=== PATIENT | female | born 1960 | race Asian ===

== ENCOUNTER → 2018-01-26 07:31 | Outpatient (CLI) | payer OTHER, BC, SELFPAY ==
[2018-01-26 08:07] LABS: Alanine Aminotransferase 53 IU/L (9-52); Albumin 4.6 g/dL (3.5-5.0); Albumin Globulin Ratio 1.2 (1.0-2.8); Alkaline Phosphatase 65 U/L (38-126); Aspartate Aminotransferase 41 IU/L (14-36); BUN Creatinine Ratio 21.7 (6-22); Bilirubin Total 0.6 mg/dL (0.2-1.3); Blood Urea Nitrogen 13 mg/dL (7-17); Calcium 9.8 mg/dL (8.4-10.2); Carbon Dioxide 29 mmol/L (22-32); Chloride 101 mmol/L (98-107); Cholesterol 209 mg/dL (140-199); Estimated Glomerular Filt Rate > 60.0 mL/min (>60); Globulin 3.8 g/dL (1.7-4.1); Glucose 104 mg/dL (70-100); HDL Cholesterol 72 mg/dL (40-60); HEMOLYSIS < 15 (0-50); LDL Cholesterol Calculated 103 mg/dL (<100); Potassium 3.8 mmol/L (3.4-5.1); Sodium 144 mmol/L (137-145); Total Protein 8.4 g/dL (6.3-8.2); Triglycerides 170 mg/dL (35-150)
[2018-01-26 08:17] LABS: Add Manual Diff / Slide Review NO; Basophils Percent Auto 1.1 % (0-2); Eosinophils Percent Auto 10.6 % (2-4); Hematocrit 38.5 % (36-46); Hemoglobin 12.7 g/dL (12.0-16.0); Lymphocytes Percent Auto 42.4 % (25-40); Mean Corpuscular HGB Conc 32.9 % (30-36); Mean Corpuscular Hemoglobin 26.1 PG (26-34); Mean Corpuscular Volume 79.3 fL (80-100); Monocytes Percent Auto 6.2 % (3-14); Neutrophils Absolute Auto 1800 /uL (3000-5900); Neutrophils Percent Auto 39.7 % (50-75); Platelet Count 236 X10^3/uL (150-400); Red Blood Cell Count 4.85 X10^6/uL (4.0-5.2); Red Cell Distribution Width 14.1 % (11.6-14.8); White Blood Cell Count 4.6 X10^3/uL (4.5-11.0)
[2018-01-26 09:57] LABS: Thyroid Stimulating Hormone 3.29 uIU/mL (0.47-4.68)
== END ==
PROVIDERS: Family Provider Internal Medicine; PCP Internal Medicine; Visit Provider Internal Medicine
DX: E78.5 Hyperlipidemia, unspecified (principal); I10 Essential (primary) hypertension
CPT/HCPCS: 36415; 80053; 80061; 84443; 85025

== ENCOUNTER 2018-08-29 11:38 | Emergency (ER) | payer OTHER, BC, SELFPAY ==
[2018-08-29 11:45] VITALS: PULSE 52; RESP 16; O2SAT 99; BMI 26.4
--- NOTE | 2018-08-29 11:47 | DI.RAD.S_ITS ---
PROCEDURE: XR ANKLE LT MIN 3V INDICATIONS: injury pain TECHNIQUE: 3 views of the ankle were acquired. COMPARISON: None. FINDINGS: Bones: No fractures or dislocations. Ankle mortise is normally aligned. No suspicious bony lesions. Soft tissues: No tibiotalar joint effusion. There is apparent thickening and irregularity seen of the Achilles tendon. IMPRESSION: Apparent thickening and irregularity of the Achilles tendon, which is suggestive of a tear. Please correlate with focal tenderness. If clinically appropriate, please consider a dedicated ankle MRI for evaluation (assuming that there is no contraindication). Dictated by: Biju Kumar M.D. on 08/29/2018 at 11:21 Approved by: Biju Kumar M.D. on 08/29/2018 at 11:22
[2018-08-29 11:50] VITALS: BP 141/90; PULSE 57; RESP 16; TEMP 36.1
--- NOTE | 2018-08-29 11:54 | ED.LOWEXIN ---
HPI - Extremity Injury (Lower) <Kimmie Gallagher PA-C - Last Filed: 08/29/18 20:33> General Chief Complaint: Extremity Injury, Lower Stated Complaint: Left ankle injury Time Seen by Provider: 08/29/18 11:40 Source: patient Mode of arrival: wheelchair Limitations: no limitations History of Present Illness HPI Narrative: This 58-year-old female was playing tennis, chasing a ball when she felt a ball hit her left posterior ankle area, then fell and was unable to bear weight on that leg secondary to sensation of weakness/giving out. She states that it isn't really painful, however feels swollen just above the ankle in the back. She denies any other injury, denies any pain in the knee or foot or any other complaints. She took ibuprofen prior to arrival Related Data Home Medications Medication Instructions Recorded Confirmed Vitamin D3 1 cap PO DAILY 08/30/18 08/30/18 fexofenadine 180 mg tablet 180 mg PO DAILY 08/30/18 08/30/18 multivitamin tablet 1 tab PO DAILY 08/30/18 08/30/18 Previous Rx's Medication Instructions Recorded chlorthalidone 25 mg tablet 25 mg PO QDAY #90 tab 01/27/18 metoprolol tartrate 50 mg tablet 50 mg PO BID #180 tab 01/27/18 montelukast 10 mg tablet 10 mg PO QDAY #90 tab 01/27/18 pravastatin 10 mg tablet 10 mg PO HS #90 tab 01/27/18 Allergies Allergy/AdvReac Type Severity Reaction Status Date / Time apple [APPLE] Allergy Severe tachy, Verified 08/30/18 11:30 throat swelling kiwi [KIWI] Allergy Mild itchy ears Verified 08/30/18 11:30 SERNA Allergy Severe swollen Uncoded 08/30/18 11:30 throat Review of Systems <Kimmie Gallagher PA-C - Last Filed: 08/29/18 20:33> Review of Systems ROS Unobtainable: All systems reviewed & are unremarkable except as noted in HPI and below PFSH <Kimmie Gallagher PA-C - Last Filed: 08/29/18 20:33> Medical History Alpha thalassemia minor (Chronic) Chronic cough (Chronic) Dyshidrotic eczema (Chronic) Fibroids (Chronic) Hematuria (Chronic) Hypertension (Chronic) Seasonal allergies (Chronic) Surgical History Anesthesia (Resolved) Bladder polyp (Resolved ~2006) Status post hysterectomy (~02/2011) Family History (Updated 08/16/14 @ 00:00 by Conversion Provider) Brother Age: 58 Hypertension Father Age: 85 Diabetes mellitus Cataract Mother Age: 84 Carcinoma, renal cell Menieres disease Fibroid polyp of colon Brain tumor (benign) Hypertension Sister Age: 53 Fibroids Hypertension Social History Smoking Status: Never smoker alcohol intake: current substance use type: does not use Family History (Updated 08/16/14 @ 00:00 by Conversion Provider) Brother Age: 58 Hypertension Father Age: 85 Diabetes mellitus Cataract Mother Age: 84 Carcinoma, renal cell Menieres disease Fibroid polyp of colon Brain tumor (benign) Hypertension Sister Age: 53 Fibroids Hypertension Social History Smoking Status: Never smoker second hand exposure: Yes (when I was little.) alcohol intake: current (it depends on the day. I usually drink wine at home after work to relax.) substance use type: does not use Exam <Kimmie Gallagher PA-C - Last Filed: 08/29/18 20:33> Narrative Exam Narrative: GENERAL APPEARANCE: Patient sitting comfortably, in no distress. LUNGS: Clear to auscultation bilaterally. HEART: Rate and rhythm regular without murmur, normal S1 and S2, no S3 or S4. MUSCULOSKELETAL: Left foot and ankle there is no effusion. No tenderness over the left foot, ankle bony prominences, or knee. Achilles is partially intact by palpation, however there is a clear palpable divot and some increased density proximal to the Achilles. No point tenderness. She is able to dorsiflex and plantar flex left foot against resistance with mild tenderness. Full range of motion of the left knee without tenderness NEUROVASCULAR: Left foot is warm and pink with intact pedal pulses, sensation grossly intact Initial Vital Signs Initial Vital Signs: Vital Signs Pulse Rate 52 L 08/29/18 11:45 Respiratory Rate 16 08/29/18 11:45 Pulse Oximetry 99 08/29/18 11:45 <Ze Acosta DO - Last Filed: 08/31/18 08:13> Initial Vital Signs Initial Vital Signs: Vital Signs Pulse Rate 52 L 08/29/18 11:45 Respiratory Rate 16 08/29/18 11:45 Pulse Oximetry 99 08/29/18 11:45 Course <Kimmie Gallagher PA-C - Last Filed: 08/29/18 20:33> Orders Ordered: ED Orders 08/29/18 11:47 XR ankle LT min 3V Stat Vital Signs - 8 hr 08/29/18 13:40 Temperature 97.9 F Pulse Rate 57 L Respiratory Rate 18 Pulse Oximetry 97 <Ze Acosta DO - Last Filed: 08/31/18 08:13> Orders Ordered: ED Orders 08/29/18 11:47 XR ankle LT min 3V Stat Vital Signs - 8 hr 08/29/18 13:40 Temperature 97.9 F Pulse Rate 57 L Respiratory Rate 18 Pulse Oximetry 97 MDM - Extremity Injury (Lower) <Kimmie Gallagher PA-C - Last Filed: 08/29/18 20:33> Imaging Data ankle: Radiologist's impression: [place] [address] XRay Report Signed Patient: Ba Stover#: [id number] : 1960Acct:[id number] Age/Sex: 58 / FDate of Service: 08/29/18 Loc: ED Accession Number: [id number] Procedure: XR ankle LT min 3V Ordering Provider: Kimmie Gallagher P.A-C PROCEDURE: XR ANKLE LT MIN 3V INDICATIONS: injury pain TECHNIQUE: 3 views of the ankle were acquired. COMPARISON: None. FINDINGS: Bones: No fractures or dislocations. Ankle mortise is normally aligned. No suspicious bony lesions. Soft tissues: No tibiotalar joint effusion. There is apparent thickening and irregularity seen of the Achilles tendon. IMPRESSION: Apparent thickening and irregularity of the Achilles tendon, which is suggestive of a tear. Please correlate with focal tenderness. If clinically appropriate, please consider a dedicated ankle MRI for evaluation (assuming that there is no contraindication). Dictated by: Biju Kumar M.D. on 08/29/2018 at 11:21 Approved by: Biju Kumar M.D. on 08/29/2018 at 11:22 Discharge Plan Departure Patient Disposition: Home Clinical Impression: Achilles tendon tear Qualifiers: Encounter type: initial encounter Laterality: left Qualified Code(s): S86.012A - Strain of left Achilles tendon, initial encounter Discharge Date/Time: 08/29/18 13:40 Interventions: ED Discharge Assessment Last Done: 08/29/18 13:40 Instructions: How to Use Crutches, DI for Achilles Tendon Rupture Activity Restrictions/Additional Instructions: Based on your exam and x-rays today, I do think you have torn your Achilles tendon in the back of your ankle. You do seem to have some strength there and this may be a partial tear, however you need follow-up exam and may need further testing with MRI as well as orthopedics referral. Please call your PCP 1st thing in the morning and set up follow-up in the next day or 2 to reassess and help with referrals if they are needed. If for some reason your unable to get in with your primary care clinic, please go ahead and call [facility] tomorrow and let them know you were seen in the emergency room with Achilles tear and we have referred you for follow-up (I have given you Dr. Badillo's name because he is radiation oncology manager today but you can see 1 of the other orthopedic specialists there as well). Please continue ibuprofen to help with inflammation. Please wear the boot that we gave you at all times when you are bearing weight, and use the crutches as well to help with balance and stability, or if you are covering more distance. Please return if you have any acutely worsening pain or other new symptoms such as color change or sensation loss in your foot as we discussed. Prescriptions: No Action chlorthalidone 25 mg tablet 25 mg PO QDAY Qty: 90 RF: 3 metoprolol tartrate 50 mg tablet 50 mg PO BID Qty: 180 RF: 3 montelukast [Singulair] 10 mg tablet 10 mg PO QDAY Qty: 90 RF: 3 pravastatin 10 mg tablet 10 mg PO HS Qty: 90 RF: 3 multivitamin tablet 1 tab PO DAILY RF: 0 fexofenadine [Rosamaria Allergy] 180 mg tablet 180 mg PO DAILY RF: 0 Vitamin D3 1 cap PO DAILY RF: 0 Referrals: Cielo Zuniga DO [Primary Care Provider] - Ye Badillo MD [Physician] - <Ze Acosta DO - Last Filed: 08/31/18 08:13> Cosign ED Attending Clarkeature Attestation: I was immediately available in the department for consultation. Documentation has been reviewed. I agree with assessment and plan.
[2018-08-29 13:40] VITALS: PULSE 57; RESP 18; TEMP 36.6; O2SAT 97
== END 2018-08-29 13:40 | disposition home or self-care (01) ==
PROVIDERS: Emergency Provider Internal Medicine; PCP Family Medicine
DX: S86.012A Strain of left Achilles tendon, initial encounter (principal); W19.XXXA Unspecified fall, initial encounter; Y93.73 Activity, racquet and hand sports
CPT/HCPCS: 73610; 99283

== ENCOUNTER → 2018-12-03 16:52 | Outpatient (CLI) | payer OTHER, BC, SELFPAY | PROVIDERS: PCP Family Medicine; Visit Provider Orthopaedic Surgery Foot and Ankle Surgery | DX: Z01.818 Encounter for other preprocedural examination (principal) | CPT/HCPCS: 93005 ==

== ENCOUNTER 2018-12-29 09:08 | Day surgery (SDC) | payer OTHER, BC, SELFPAY ==
[2018-12-28 08:34] VITALS: BMI 26.4
[2018-12-29] VITALS (8 sets, daily range): BP systolic 103–129; BP diastolic 45–79; PULSE 54–64; RESP 10–17; TEMP 36.4–36.8; O2SAT 96–100; BMI 26.4
--- NOTE | 2018-12-29 10:51 | PM.PREOP ---
Pre-operative Note Interval Note History & Physical reviewed/Exam performed by Physician: Yes Changes to H&P: No
--- NOTE | 2018-12-29 11:08 | SUR.PREOP ---
Block start time[1050]. Monitoring initiated and maintained throughout procedure. Oxygen and medications given per anesthesiologist instructions. Patient remained stable throughout procedure, no adverse reactions noted. Block end time [1102].
[2018-12-29] MEDS: CEFAZOLIN 2 GM/100 ML FROZ.PIGGY IV (11:24)
--- NOTE | 2018-12-29 12:02 | SUR.OPER ---
Prone on padded OR bed, head in foam head support, gel chest rolls, gel pad under knees, pillow under lower legs, toes free of pressure, arms secured on padded arm boards at <90 degrees abduction. Safety belt at thigh.
--- NOTE | 2018-12-29 12:15 | P.PCN_ITS ---
Procedures Date/Time Date of procedure: 12/29/18 Time of procedure: 10:50 General Procedure description: Ultrasound guided popliteal sciatic nerve block for post op pain control after left achilles tendon repair by Dr. Wright. Risk and murtaza efits of procedure discussed with patient. ASA monitoring applied to patient. Oxygen given via nasal cannula. 1 mg Versed and 50 mcg fentanyl given for procedural sedation. Skin site was prepped with chlorhexidine and allowed to fully dry. Sterile gloves, mask, hat and probe cover were used to maintain sterility. 2% lidocaine and 30ga needle was used to make a small skin wheal at needle insertion site. Under ultrasound guidance, a 21ga 100mm Pajunk needle was directed near the division of the sciatic nerve into tibial and peroneal nerve in the popliteal fossa (lateral approach). Patient reported no parasthesias. After negative aspiration, 20 mL 0.5% ropivicaine and 10mg dexamethasone were in jected around sciatic nerve. Patient tolerated procedure well.
[2018-12-29] MEDS: BUPIVACAINE 0.25% W/ EPI 30 ML VIAL INJ (12:23)
[2018-12-29] MEDS: LACTATED RINGERS 1,000 ML 42 ML IV (12:43)
--- NOTE | 2018-12-29 13:47 | P.OP_ITS ---
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 Repair Achilles tendon, secondary, left CPT code 01082 2. Transfer tendon flexor hallucis longus, left CPT code 34126 Same procedure as scheduled: Yes Indications: The patient is a 58-year-old female that sustained a left Achilles tendon rupture approximately 4 months ago. The patient had an initial non operative treatment but unfortunately came out of her boot and walk flatfoot early during the course. Pelvis conservative treatment was attempted but the patient has persistent weakness and an established gap. Patient has been lauren cated for surgical reconstruction to return to their desired activity level. Patient has been counseled extensively regarding the complex nature of the problem indications to transfer the flexor hallucis longus tendon to augment repair and possible need for lengthening the tendon or calf muscle. We discussed the rationale the risks of and prolonged recovery associated with surgery. Patient expressed understanding of all issues including the risk of infection, nerve damage, wound dehiscence, re-rupture, incomplete relief of pain, inability return to the patient's desired level of function, generalized dissatisfaction with the surgical procedure outcome, deep vein thrombosis, pulmonary embolism, cardiac it and pulmonary complications up to and including stroke paralysis and . The patient understands the healing of soft tissues will take 3 months for full recovery 6-12 months. The patient understands that it is critical to elevate the operative extremity above the heart for the 1st 3 weeks after surgery to control swelling and pain. The patient was counseled no weight-bearing will be allowed on the surgical leg until instructed to do so. Patient expressed full understanding of all these issues and would like to proceed with surgery. Informed consent was signed in the office. Surgeon: Angy Wright Click Yes if Unassisted: Yes Anesthesia Type: General and Local Operative Notes Findings: Chronic rupture midsubstance Achilles tendon 2 cm gap. Note there was a small strip of tendon in continuity but this was very thin and stretched out. No plantaris was encountered. Posterior fascia was divided in the FHL isolated taking care to protect the neurovascular bundle. FHL was cut sized and transferred to the calcaneus just anterior to the Achilles tendon and secured using an Arthrex bio tenodesis screw. The Achilles tendon was mobilized and repaired using 2. FiberWire. Closure Type: primary Specimen(s): none sent Applied: other (Splint in plantar flexion) Estimated Blood Loss (mL): 15 Blood products transfused: none Tourniquet time (min): 63 Procedure in detail: The patient was seen in the preoperative area and the informed consent was confirmed and the patient's site of surgery was marked. A regional block was placed by the anesthesia team for postoperative pain control. The patient was then brought back to the operating room and placed under general anesthesia in the supine position. A well-padded thigh tourniquet was placed on the operative leg. Patient was then moved into the prone position on the operative table. Chest rolls were utilized. The operative extremity was prepped and draped in the standard sterile fashion. A formal time-out procedure was performed confirming the patient, side and site of surgery administration of appropriate preoperative antibiotics and presence of informed consent. All were in agreement. Implants were in the room. The level of the rupture and gap was marked out on the posterior leg and the preliminary incision was marked out as well. After exsanguination with the Esmarch the tourniquet was elevated to 250 mm of mercury and stayed there for 63 minutes. Next a longitudinal incision was made over the Achilles tendon the paratenon was isolated carefully divided and elevated off the tendon. Is noted to be a chronic tear with gap in the midsubstance Achilles tendon. There is a small strip of Achilles in continuity but this was very thin and stretched out. The tendon was mobilized and the scar tissue was excised. Once this was completed there was an approximately 2 cm gap between the tendon ends. Due to the chronic nature of the rupture and patient's age it was decided that an FHL transfer would be necessary. FHL transfer: Posterior fascia of the leg was incised deep and and the FHL muscle belly and tendon were isolated. FHL was traced deep medially and retracted proximally to expose the tendon as it went into the tarsal tunnel. The tendon was isolated and tested with mobilization of the great toe. Tendon was then cut deep into the tunnel and brought out of the wound. This was sized to be a 7. Fiber loop was then placed in the tendon in. The Beath pin was placed just anterior to the Achilles tendon in the calcaneus and was drilled through the calcaneus in line with the Achilles insertion. Pin position was confirmed on fluoroscopy. This was then overdrilled with a 4 mm Reamer with the 7 mm Reamer approximately 30 mm deep to accommodate the bio tenodesis screw. A 7 x 23 mm bio tenodesis screw was selected. The FHL tendon sutures were passed through the calcaneus with the Beath pin out the plantar heel. Next the ankle was held in approximately 25? of plantar flexion. FHL was then guided into the tunnel and pulled taut at the appropriate plantar flexion. This was then secured with the 7 x 23 mm Arthrex bio tenodesis screw. This achieved excellent fixation and held the ankle in the appropriate tension as desired. Achilles tendon repair: Attention was then returned to the Achilles tendon repair. The tendon was mobilized using a malleable retractor between the tendon and paratenon and deep to the tendon as well. This allowed the tendon to be brought distally to approximate the tendon ends. The tendons were repaired in the standard fashion using a 2. FiberWire Krackow our sutures were 2 strand repair. This was oversewn with 0 Vicryl sutures. Once this was completed the tourniquet was let down and hemostasis was achieved. Irrigation was performed. There is good tension on the Achilles and a Villalobos's test demonstrated restored plantar flexion. At this time the paratenon was repaired with 4 0 Maxon suture. Subcutaneous tissue was closed with 4 0 Monocryl skin with 3 O nylon suture bulky dressing and splint were applied in plantar flexion. The patient was woken from anesthesia and taken to recovery room. There were no immediate complications from this procedure. All counts were correct. Complications: none Post-operative Condition: stable Disposition: PACU Plan for aftercare: Patient will be strict elevation and strict nonweightbearin g. she will be on aspirin 325 mg twice a day for DVT prophylaxis starting postoperative day 1. Patient is encouraged to wiggle the toes and mobilizer other extremity to help with blood flow. Patient will follow up in 2 weeks time for suture removal. At that time the patient will be placed into a boot with heel lifts or cast based on wound healing. Once in the boot the patient will be instructed to do gentle active motion exercises and progressive partial weight- bearing under the Achilles repair protocol
[2018-12-29] MEDS: fentaNYL 100 MCG/2 ML INJ 50 MCG IV (14:01)
--- NOTE | 2018-12-29 14:07 | SUR.PHASEI ---
Pt c/o /10 pain medicated with fentanyl.
--- NOTE | 2018-12-29 14:51 | SUR.PHASEII ---
brought in, d/c instructions discussed. All voiced an understanding. L leg remains elevated with ice intermittently behind knee, pt denies pain, nausea. Awake and drinking coffee.
== END 2018-12-29 15:15 | disposition home or self-care (01) ==
LOC: OR 09:10
PROVIDERS: Family Provider Family Medicine; PCP Family Medicine; Visit Provider Orthopaedic Surgery Foot and Ankle Surgery
PROC: (CPT 27650; principal; 2018-12-29 10:45)
PROC: (CPT 27691; 2018-12-29 10:45)
DX: S86.012A Strain of left Achilles tendon, initial encounter (principal); G89.18 Other acute postprocedural pain; Y93.73 Activity, racquet and hand sports
CPT/HCPCS: 27654; 27691; 64445; 64450; J0690; J1100; J1885; J2250; J2405; J2704; J3010

== ENCOUNTER → 2019-03-03 16:41 | Outpatient (CLI) | payer OTHER, BC, SELFPAY ==
[2019-03-03 18:16] LABS: Alanine Aminotransferase 32 IU/L (<35); Albumin 4.5 g/dL (3.5-5.0); Albumin Globulin Ratio 1.3 (1.0-2.8); Alkaline Phosphatase 75 U/L (38-126); Aspartate Aminotransferase 34 IU/L (14-36); Bilirubin Total 0.3 mg/dL (0.2-1.3); Blood Urea Nitrogen 14 mg/dL (7-17); Carbon Dioxide 29 mmol/L (22-32); Chloride 101 mmol/L (98-107); Estimated Glomerular Filt Rate > 60.0 mL/min (>60); Globulin 3.5 g/dL (1.7-4.1); Glucose 97 mg/dL (70-100); HEMOLYSIS < 15 (0-50); Potassium 4.1 mmol/L (3.4-5.1); Sodium 139 mmol/L (137-145)
== END ==
PROVIDERS: Family Provider Family Medicine; PCP Family Medicine; Visit Provider Family Medicine
DX: R94.5 Abnormal results of liver function studies (principal)
CPT/HCPCS: 36415; 80053

== ENCOUNTER → 2019-03-12 13:24 | Outpatient (CLI) | payer OTHER, BC, SELFPAY ==
--- NOTE | 2019-03-12 13:25 | DI.MG.S_ITS ---
BILATERAL DIGITAL SCREENING MAMMOGRAM 3D/2D WITH CAD: 03/12/2019 CLINICAL: Routine screening. Comparison is made to exams dated: 11/06/2016 mammogram, 10/26/2015 mammogram, and 10/06/2014 mammogram - [facility]. The tissue of both breasts is heterogeneously dense. This may lower the sensitivity of mammography. Current study was also evaluated with a Computer Aided Detection (CAD) system. No significant masses, calcifications, or other findings are seen in either breast. There has been no significant interval change. IMPRESSION: NEGATIVE There is no mammographic evidence of malignancy. A 1 year screening mammogram is recommended. This exam was interpreted at Station ID: [id number]. NOTE: For mammograms, a report in lay terms will be sent to the patient. Approximately 15% of breast malignancies will not be visualized mammographically. In the management of a palpable breast mass, a negative mammogram must not discourage biopsy of a clinically suspicious lesion. Electronically Signed By: Bipin murillo/pierre:03/14/2019 09:40:26 letter sent: Normal Exam ACR BI-RADS Category 1: Negative [id number]
== END ==
PROVIDERS: PCP Family Medicine; Visit Provider Family Medicine
DX: Z12.31 Encounter for screening mammogram for malignant neoplasm of breast (principal)
CPT/HCPCS: 77063; 77067

== ENCOUNTER 2019-04-01 12:49 | Day surgery (SDC) | payer OTHER, BC, SELFPAY ==
[2019-04-01 13:25] VITALS: BMI 26.3
[2019-04-01 13:31] VITALS: BP 165/90; PULSE 70; RESP 15; TEMP 36.2; O2SAT 94
[2019-04-01] MEDS: SODIUM CHLORIDE 0.9% 1,000 ML 200 ML IV (13:37)
--- NOTE | 2019-04-01 14:11 | PM.HP.1 ---
History of Present Illness History of Present Illness Date Patient Seen: 04/01/19 Time Patient Seen: 14:11 Chief complaint: [id number] SCREENING COLONOSCOPY Narrative: 58-year-old white female patient here for a screening colonoscopy. Had a polyp removed about 6 years ago. Patient is asymptomatic. Patient History Medical History Achilles rupture, left (Acute 08/29/18) Alpha thalassemia minor (Chronic) Dyshidrotic eczema (Chronic) Eczema (Acute) Fibroids (Chronic) Hematuria (Chronic) Hemorrhoids (Acute) Hypertension (Chronic) Seasonal allergies (Chronic) Transaminitis (Acute) Surgical History Anesthesia (Resolved) Bladder polyp (Resolved ~2006) Status post hysterectomy (~02/2011) Family & Social History Family History Brother Age: 58 Hypertension Father Age: 85 Diabetes mellitus Cataract Prostate cancer Colon cancer Mother Age: 84 Carcinoma, renal cell Menieres disease Fibroid polyp of colon Brain tumor (benign) Hypertension Sister Age: 53 Fibroids Hypertension Social History: household members spouse Tobacco & Substance use: Smoking Status Never smoker alcohol intake current alcohol intake frequency 0-2 drinks per day Substance Use Type does not use Meds Home Medications and Allergies Home Medications Medication Instructions Recorded Confirmed Type multivitamin 1 tab PO DAILY 08/30/18 04/01/19 History cholecalciferol (vitamin D3) 50 unit PO DAILY 12/29/18 04/01/19 History [Vitamin D3] loratadine [Allerclear] 10 mg PO DAILY 12/29/18 04/01/19 History chlorthalidone 25 mg tablet 25 mg PO QDAY #90 tab 04/01/19 04/01/19 Rx metoprolol tartrate 50 mg tablet 50 mg PO BID #180 tab 04/01/19 04/01/19 Rx montelukast 10 mg tablet 10 mg PO QDAY #90 tab 04/01/19 04/01/19 Rx pravastatin 10 mg tablet 10 mg PO HS #90 tab 04/01/19 04/01/19 Rx Allergies Allergy/AdvReac Type Severity Reaction Status Date / Time apple [APPLE] Allergy Severe tachy, Verified 04/01/19 13:22 throat swelling kiwi [KIWI] Allergy Mild itchy ears Verified 04/01/19 13:22 SERNA Allergy Severe swollen Uncoded 12/20/18 08:34 throat Review of Systems Review of Systems ROS Unobtainable: All systems reviewed & are unremarkable except as noted in HPI and below Exam Vital Signs (past 8 hours): - 04/01/19 13:31 Temperature 97.2 F L Pulse Rate 70 Respiratory Rate 15 Blood Pressure 165/90 H Pulse Oximetry 94 Oxygen Delivery Method Room Air Narrative Exam Narrative: 58-year-old female asymptomatic resting comfortably in bed Lungs are clear Heart regular rhythm no murmur Abdomen soft nontender no masses Rectal to be done at colonoscopy Assessment & Plan Assessment & Plan narrative: 58-year-old female here for a screening colonoscopy is asymptomatic. She had a polypectomy about 6 years ago. She has no unanswered questions.
--- NOTE | 2019-04-01 14:28 | PM.OP.ENDO ---
Operative Date/Time/Diagnoses Date of procedure: 04/01/19 Time of procedure: 14:28 Pre-op diagnosis: Screening colonoscopy Post-op diagnosis: same Procedure & Clinicians Study performed: Total colonoscopy to the cecum Same procedure as scheduled: Yes Surgeon: Alvaro Thakur Procedure Notes SCOAP/Timeout: This was done Procedure in detail: The patient was properly identified during surgical pause. The flexible fiberoptic colonoscope was inserted transanally to the cecum. The patient has no tumors no polyps no diverticulosis. She had a normal exam. She was comfortably maintained with 4 mg of Versed and 150 micro g of fentanyl throughout the procedure Scope withdrawal time: 5 Sedation minutes: 14 Specimen(s): none sent Complications: none Post-procedure Recommendations: Colonscopy in 10 years Disposition: PACU
[2019-04-01] MEDS: MIDAZOLAM 5 MG/5 ML VIAL IV (14:29)
[2019-04-01] MEDS: fentaNYL 250 MCG/5 ML INJ IV (14:29)
[2019-04-01 14:32] VITALS: BP 129/79; PULSE 75; RESP 12; TEMP 37.1; O2SAT 97
[2019-04-01 14:37] VITALS: BP 126/82; PULSE 75; RESP 12; O2SAT 97
[2019-04-01 14:42] VITALS: BP 129/81; PULSE 78; RESP 18; O2SAT 97
[2019-04-01 14:46] VITALS: BP 117/85; PULSE 77; RESP 16; TEMP 36.2; O2SAT 99
[2019-04-01 15:00] VITALS: BP 137/97; PULSE 70; RESP 15; TEMP 36.1; O2SAT 98
== END 2019-04-01 15:05 | disposition home or self-care (01) ==
PROVIDERS: PCP Family Medicine; Visit Provider Surgery
PROC: 0DJD8ZZ Inspection of Lower Intestinal Tract, Via Natural or Artificial Opening Endoscopic (ICD-10-PCS; CPT 45378; principal; 2019-04-01 14:30)
DX: Z12.11 Encounter for screening for malignant neoplasm of colon (principal); Z86.010 Personal history of colon polyps
CPT/HCPCS: 45378; 99152; J2250; J3010

== ENCOUNTER → 2020-04-28 08:07 | Outpatient (CLI) | payer OTHER, BC, SELFPAY ==
--- NOTE | 2020-04-28 08:10 | DI.MG.S_ITS ---
BILATERAL DIGITAL SCREENING MAMMOGRAM 3D/2D WITH CAD: 04/28/2020 CLINICAL: Routine screening. Comparison is made to exams dated: 03/12/2019 mammogram, 11/06/2016 mammogram, 10/26/2015 mammogram, and 10/06/2014 mammogram - [facility]. The tissue of both breasts is heterogeneously dense. This may lower the sensitivity of mammography. Current study was also evaluated with a Computer Aided Detection (CAD) system. No significant masses, calcifications, or other findings are seen in either breast. There has been no significant interval change. IMPRESSION: NEGATIVE There is no mammographic evidence of malignancy. A 1 year screening mammogram is recommended. This exam was interpreted at Station ID: [id number]. NOTE: For mammograms, a report in lay terms will be sent to the patient. Approximately 15% of breast malignancies will not be visualized mammographically. In the management of a palpable breast mass, a negative mammogram must not discourage biopsy of a clinically suspicious lesion. Electronically Signed By: Bipin murillo/pierre:04/30/2020 07:26:16 letter sent: Normal Exam ACR BI-RADS Category 1: Negative 3341F
== END ==
PROVIDERS: PCP Family Medicine; Referring Provider Family Medicine; Visit Provider Family Medicine
DX: Z12.31 Encounter for screening mammogram for malignant neoplasm of breast (principal)
CPT/HCPCS: 77063; 77067

== ENCOUNTER → 2020-06-13 07:30 | Outpatient (CLI) | payer OTHER, BC, SELFPAY ==
[2020-06-13 08:09] LABS: Add Manual Diff / Slide Review NO; Basophils Absolute Auto 100 /uL (0-100); Basophils Percent Auto 0.9 % (0-2); Eosinophils Absolute Auto 700 /uL (0-450); Eosinophils Percent Auto 11.4 % (2-4); Hemoglobin 12.7 g/dL (12.0-16.0); Lymphocytes Absolute Auto 3100 /uL (1100-4500); Lymphocytes Percent Auto 49.5 % (25-40); Mean Corpuscular HGB Conc 32.6 % (30-36); Mean Corpuscular Hemoglobin 25.8 PG (26-34); Mean Corpuscular Volume 79.2 fL (80-100); Monocytes Absolute Auto 400 /uL (0-900); Neutrophils Absolute Auto 2000 /uL (1500-7000); Neutrophils Percent Auto 32.2 % (50-75); Platelet Count 212 X10^3/uL (150-400); Red Blood Cell Count 4.93 X10^6/uL (4.0-5.2); Red Cell Distribution Width 14.1 % (11.6-14.8); White Blood Cell Count 6.1 X10^3/uL (4.5-11.0)
[2020-06-13 08:27] LABS: Alanine Aminotransferase 41 IU/L (<35); Albumin 4.7 g/dL (3.5-5.0); Albumin Globulin Ratio 1.2 (1.0-2.8); Alkaline Phosphatase 84 U/L (38-126); Aspartate Aminotransferase 35 IU/L (14-36); Bilirubin Total 0.7 mg/dL (0.2-1.3); Blood Urea Nitrogen 15 mg/dL (7-17); Carbon Dioxide 27 mmol/L (22-32); Chloride 98 mmol/L (98-107); Cholesterol 238 mg/dL (140-199); Estimated Glomerular Filt Rate > 60.0 mL/min (>60); Globulin 3.9 g/dL (1.7-4.1); Glucose 101 mg/dL (70-100); HDL Cholesterol 69 mg/dL (40-60); HEMOLYSIS < 15 (0-50); LDL Cholesterol Calculated 137 mg/dL (<100); Potassium 3.5 mmol/L (3.4-5.1); Sodium 136 mmol/L (137-145); Total Protein 8.6 g/dL (6.3-8.2); Triglycerides 160 mg/dL (35-150)
[2020-06-13 09:10] LABS: Thyroid Stimulating Hormone 3.56 uIU/mL (0.47-4.68)
== END ==
PROVIDERS: PCP Family Medicine; Referring Provider Family Medicine; Visit Provider Family Medicine
DX: E78.5 Hyperlipidemia, unspecified (principal); E88.81 Metabolic syndrome and other insulin resistance; I10 Essential (primary) hypertension; R74.01 Elevation of levels of liver transaminase levels
CPT/HCPCS: 36415; 80053; 80061; 84443; 85025

== ENCOUNTER → 2020-06-22 15:12 | Outpatient (CLI) | payer OTHER, BC, SELFPAY ==
[2020-06-22] MEDS: COVID-19 VACC #1, MRNA(MOD) 100 MCG/0.5 ML VIAL IM (15:22)
== END ==
PROVIDERS: PCP Family Medicine; Visit Provider Internal Medicine
DX: Z23 Encounter for immunization (principal)
CPT/HCPCS: 0011A; 91301

== ENCOUNTER → 2020-07-20 15:44 | Outpatient (CLI) | payer OTHER, BC, SELFPAY ==
[2020-07-20] MEDS: COVID-19 VACC #2, MRNA(MOD) 100 MCG/0.5 ML VIAL IM (15:56)
== END ==
PROVIDERS: PCP Family Medicine; Visit Provider Internal Medicine
DX: Z23 Encounter for immunization (principal)
CPT/HCPCS: 0012A; 91301

== ENCOUNTER → 2021-06-13 07:31 | Outpatient (CLI) | payer OTHER, BC, SELFPAY ==
[2021-06-13 08:07] LABS: Alanine Aminotransferase 33 IU/L (<35); Albumin 4.5 g/dL (3.5-5.0); Albumin Globulin Ratio 1.5 (1.0-2.8); Alkaline Phosphatase 59 U/L (38-126); Aspartate Aminotransferase 30 IU/L (14-36); BUN Creatinine Ratio 17.2 (6-22); Bilirubin Total 0.6 mg/dL (0.2-1.3); Blood Urea Nitrogen 10 mg/dL (7-17); Calcium 9.8 mg/dL (8.4-10.2); Carbon Dioxide 30 mmol/L (22-32); Chloride 99 mmol/L (98-107); Cholesterol 216 mg/dL (140-199); Estimated Glomerular Filt Rate > 60.0 mL/min (>60); Globulin 3.1 g/dL (1.7-4.1); Glucose 104 mg/dL (70-100); HDL Cholesterol 74 mg/dL (40-60); HEMOLYSIS < 15 (0-50); LDL Cholesterol Calculated 112 mg/dL (<100); Potassium 3.8 mmol/L (3.4-5.1); Sodium 136 mmol/L (137-145); Total Protein 7.6 g/dL (6.3-8.2); Triglycerides 151 mg/dL (35-150); Uric Acid 7.5 mg/dL (2.5-6.2)
== END ==
PROVIDERS: PCP Family Medicine; Referring Provider Family Medicine; Visit Provider Family Medicine
DX: E78.5 Hyperlipidemia, unspecified (principal); I10 Essential (primary) hypertension; M10.9 Gout, unspecified
CPT/HCPCS: 36415; 80053; 80061; 84550

== ENCOUNTER → 2022-07-09 07:22 | Outpatient (CLI) | payer BC, SELFPAY ==
[2022-07-09 08:11] LABS: Add Manual Diff / Slide Review NO; Basophils Absolute Auto 100 /uL (0-100); Basophils Percent Auto 1.1 % (0-2); Eosinophils Absolute Auto 700 /uL (0-450); Eosinophils Percent Auto 10.6 % (2-4); Hematocrit 37.4 % (36-46); Hemoglobin 12.1 g/dL (12.0-16.0); Lymphocytes Absolute Auto 2800 /uL (1100-4500); Lymphocytes Percent Auto 44.1 % (25-40); Mean Corpuscular HGB Conc 32.3 % (30-36); Mean Corpuscular Hemoglobin 25.6 PG (26-34); Mean Corpuscular Volume 79.2 fL (80-100); Monocytes Absolute Auto 400 /uL (0-900); Monocytes Percent Auto 6.1 % (3-14); Neutrophils Absolute Auto 2500 /uL (1500-7000); Neutrophils Percent Auto 38.1 % (50-75); Platelet Count 206 X10^3/uL (150-400); Red Blood Cell Count 4.72 X10^6/uL (4.0-5.2); Red Cell Distribution Width 14.3 % (11.6-14.8); White Blood Cell Count 6.4 X10^3/uL (4.5-11.0)
[2022-07-09 08:24] LABS: Alanine Aminotransferase 39 IU/L (<35); Albumin 4.3 g/dL (3.5-5.0); Albumin Globulin Ratio 1.2 (1.0-2.8); Alkaline Phosphatase 67 U/L (38-126); Aspartate Aminotransferase 37 IU/L (14-36); BUN Creatinine Ratio 23.5 (6-22); Bilirubin Total 0.6 mg/dL (0.2-1.3); Blood Urea Nitrogen 12 mg/dL (7-17); Calcium 9.4 mg/dL (8.4-10.2); Carbon Dioxide 29 mmol/L (22-32); Chloride 99 mmol/L (98-107); Cholesterol 211 mg/dL (140-199); Estimated Glomerular Filt Rate > 60 mL/min (>60); Globulin 3.5 g/dL (1.7-4.1); Glucose 99 mg/dL (80-110); HDL Cholesterol 76 mg/dL (40-60); HEMOLYSIS < 15 (0-50); LDL Cholesterol Calculated 110 mg/dL (<100); Potassium 3.7 mmol/L (3.4-5.1); Sodium 135 mmol/L (137-145); Total Protein 7.8 g/dL (6.3-8.2); Triglycerides 123 mg/dL (35-150); Uric Acid 8.5 mg/dL (2.5-6.2)
[2022-07-09 08:54] LABS: Thyroid Stimulating Hormone 3.32 uIU/mL (0.47-4.68)
== END ==
PROVIDERS: PCP Family Medicine; Referring Provider Family Medicine; Visit Provider Family Medicine
DX: E78.2 Mixed hyperlipidemia (principal); E88.81 Metabolic syndrome and other insulin resistance; I10 Essential (primary) hypertension; Z13.29 Encounter for screening for other suspected endocrine disorder; Z13.6 Encounter for screening for cardiovascular disorders
CPT/HCPCS: 36415; 80053; 80061; 84443; 84550; 85025

== ENCOUNTER → 2022-08-12 07:15 | Outpatient (CLI) | payer BC, SELFPAY ==
[2022-08-12 08:38] LABS: Alanine Aminotransferase 34 IU/L (<35); Albumin 4.2 g/dL (3.5-5.0); Albumin Globulin Ratio 1.2 (1.0-2.8); Alkaline Phosphatase 64 U/L (38-126); Aspartate Aminotransferase 29 IU/L (14-36); BUN Creatinine Ratio 17.4 (6-22); Bilirubin Total 0.8 mg/dL (0.2-1.3); Blood Urea Nitrogen 8 mg/dL (7-17); Calcium 9.5 mg/dL (8.4-10.2); Carbon Dioxide 28 mmol/L (22-32); Chloride 98 mmol/L (98-107); Estimated Glomerular Filt Rate > 60 mL/min (>60); Globulin 3.4 g/dL (1.7-4.1); Glucose 95 mg/dL (80-110); HEMOLYSIS < 15 (0-50); Potassium 3.7 mmol/L (3.4-5.1); Sodium 136 mmol/L (137-145); Total Protein 7.6 g/dL (6.3-8.2)
[2022-08-12 10:20] LABS: Uric Acid 8.2 mg/dL (2.5-6.2)
== END ==
PROVIDERS: PCP Family Medicine; Referring Provider Family Medicine; Visit Provider Family Medicine
DX: R74.01 Elevation of levels of liver transaminase levels (principal); M10.9 Gout, unspecified
CPT/HCPCS: 36415; 80053; 84550

== ENCOUNTER → 2022-11-15 07:38 | Outpatient (CLI) | payer BC, SELFPAY | PROVIDERS: PCP Family Medicine; Visit Provider Nurse Practitioner Family | DX: M79.89 Other specified soft tissue disorders (principal) | CPT/HCPCS: 87070; 87075; 87205 ==

== ENCOUNTER 2022-12-10 13:11 | Emergency (ER) | payer BC, SELFPAY ==
[2022-12-10 13:17] VITALS: BP 186/84; PULSE 56; RESP 16; TEMP 36.7; O2SAT 98; BMI 24.7
--- NOTE | 2022-12-10 13:25 | DI.RAD.S_ITS ---
PROCEDURE: XR ELBOW LT MIN 3V INDICATIONS: fall/pain x 1 week TECHNIQUE: 3 views of the elbow were acquired. COMPARISON: None. FINDINGS: Bones: No fractures or dislocations. No suspicious bony lesions. Soft tissues: No elbow joint effusion. No suspicious soft tissue calcifications. Soft tissue swelling over the olecranon. IMPRESSION: 1. No acute osseous abnormality. Dictated by: Marc Newman M.D. on 12/10/2022 at 13:56 Approved by: Marc Newman M.D. on 12/10/2022 at 13:57
[2022-12-10 13:58] VITALS: O2SAT 96
[2022-12-10 13:59] VITALS: BP 142/74; PULSE 56; O2SAT 97
[2022-12-10 14:00] VITALS: PULSE 56; O2SAT 96
--- NOTE | 2022-12-10 14:09 | ED.GENADULT ---
HPI - General Adult General Chief complaint: Syncope Stated complaint: fell last week hit elbow still pain and in head Time Seen by Provider: 12/10/22 14:02 Source: patient Mode of arrival: Ambulatory History of Present Illness HPI narrative: Patient is a 62-year-old female who is here for evaluation of left elbow discomfort. She states that 1 week ago she was standing in the bathroom brushing her teeth when she had what sounds like a syncopal episode. Prior to passing out she did not have chest pain or shortness of breath or lightheadedness. There was no loss of bowel or bladder. This did happened to her 1 time before earlier this year. She was not evaluated. She states she did land on her left elbow and has had continued pain and left elbow since then. She is also having a headache but this has improved from the event. Related Data Home Medications Medication Instructions Recorded Confirmed multivitamin 1 tab PO DAILY 08/30/18 11/19/22 cholecalciferol (vitamin D3) 10 50 unit PO DAILY 12/29/18 11/19/22 mcg (400 unit) capsule (Vitamin D3) loratadine 10 mg tablet 10 mg PO DAILY 12/29/18 11/19/22 (Allerclear) budesonide-formoterol [Symbicort] inhalation 10/22/22 11/19/22 Previous Rx's Medication Instructions Recorded chlorthalidone 25 mg tablet 25 mg PO QDAY #90 tabs 02/11/22 pravastatin 10 mg tablet 10 mg PO HS #90 tabs 02/11/22 clobetasol-emollient 0.05 % 1 applic topical QDAY PRN eczema 04/08/22 topical cream #30 grams metoprolol tartrate 25 mg tablet 25 mg PO BID #180 tabs 07/14/22 doxepin 10 mg capsule 10 mg PO BEDTIME #45 caps 11/19/22 doxycycline monohydrate 100 mg 100 mg PO BID #20 caps 11/19/22 capsule escitalopram oxalate 20 mg tablet 20 mg PO DAILY #30 tabs 11/19/22 Allergies Allergy/AdvReac Type Severity Reaction Status Date / Time apple [APPLE] Allergy Severe tachy, Verified 11/19/22 08:59 throat swelling kiwi [KIWI] Allergy Mild itchy ears Verified 11/19/22 08:59 SERNA Allergy Severe swollen Uncoded 11/19/22 08:59 throat Review of Systems Constitutional Constitutional: Reports system reviewed and no additional complaints, except as documented Musculoskeletal Musculoskeletal: Reports system reviewed and no additional complaints, except as documented Integumentary/Breasts Skin/Breast: Reports system reviewed and no additional complaints, except as documented Neurologic Neurologic: Reports system reviewed and no additional complaints, except as documented Patient History Medical History Achilles rupture, left (08/29/18) Alpha thalassemia minor Dyshidrotic eczema Eczema Fibroids Hematuria Hemorrhoids Hypertension Seasonal allergies Surgical History Anesthesia Bladder polyp (~2006) Status post hysterectomy (~02/2011) Family History Brother Age: 62 Hypertension Father Age: 89 Diabetes mellitus Cataract Prostate cancer Colon cancer Mother Age: 88 Carcinoma, renal cell Menieres disease Fibroid polyp of colon Brain tumor (benign) Hypertension Sister Age: 57 Fibroids Hypertension Social History marital status: number of children: 2 household members: spouse 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) Smoking Status: Never smoker second hand exposure: Yes (when I was little.) alcohol intake: current substance use type: does not use Smoking Status: Never smoker alcohol intake frequency: 3 or more drinks per day Substance Use Type: does not use Exam Initial Vital Signs Initial Vital Signs: Vital Signs Temperature 98.1 F 12/10/22 13:17 Pulse Rate 56 L 12/10/22 13:17 Respiratory Rate 16 12/10/22 13:17 Blood Pressure 186/84 H 12/10/22 13:17 Pulse Oximetry 98 12/10/22 13:17 Oxygen Delivery Method Room Air 12/10/22 13:17 HENMT Head: normal to inspection and normocephalic Resp Effort & Inspection: normal respiratory effort Cardio Other: Discomfort over the olecranon process left elbow GI Inspection: non-distended Skin General: no rashes or lesions noted Extrem Other: No gross deformities. Course Orders Ordered: ED Orders 12/10/22 13:25 XR elbow LT min 3V Stat 12/10/22 13:39 EKG-12 Lead Stat 12/10/22 14:09 CBC Auto Diff [Complete Blood Count AUTO DIFF] Stat Vital Signs Vital signs: Vital Signs - 8 hr 12/10/22 13:17 12/10/22 13:58 12/10/22 13:59 Temperature 98.1 F Pulse Rate 56 L 56 L Respiratory Rate 16 Blood Pressure 186/84 H Pulse Oximetry 98 96 97 Oxygen Delivery Method Room Air 12/10/22 13:59 12/10/22 14:00 Temperature Pulse Rate 56 L Respiratory Rate Blood Pressure 142/74 H Pulse Oximetry 96 Oxygen Delivery Method Medical Decision Making Lab Data 12/10/22 13:12 Labs: Lab Results 12/10/22 Range/Units 13:12 WBC 5.9 (4.5-11.0) X10^3/uL RBC 4.63 (4.0-5.2) X10^6/uL Hgb 12.1 (12.0-16.0) g/dL Hct 37.0 (36-46) % MCV 79.9 L (80-100) fL MCH 26.2 (26-34) PG MCHC 32.8 (30-36) % RDW 14.1 (11.6-14.8) % Plt Count 227 (150-400) X10^3/uL Neut % (Auto) 49.6 L (50-75) % Lymph % (Auto) 34.6 (25-40) % [place] % (Auto) 7.3 (3-14) % Eos % (Auto) 7.7 H (2-4) % Baso % (Auto) 0.8 (0-2) % Neut # (Auto) 2900 (9600-5269) /uL Lymph # (Auto) 2000 (6926-6639) /uL [place] # (Auto) 400 (0-900) /uL Eos # (Auto) 500 H (0-450) /uL Baso # (Auto) 0 (0-100) /uL ECG Data Attestation: I personally reviewed and interpreted this ECG as follows: Interpretation: Sinus bradycardia Ventricular rate of 56 Normal axis Normal QRS Normal QTC No ST T wave changes MDM Narrative Medical decision making narrative: EKGs unremarkable. X-rays unremarkable. Patient is not anemic. I have low suspicion that this was a seizure/stroke. It was 10 days ago. No indication for further radiologic studies. Will discharge patient home with instructions to contact her primary provider for a follow-up and discuss the indication for a Holter monitor. Discharge Plan Departure Patient Disposition: Home Clinical Impression: Contusion of left elbow, Syncope Instructions: DI for Syncope in Adults (Fainting) Activity Restrictions/Additional Instructions: Continue to take all of your medications as directed. Contact your primary doctor for follow-up to discuss the indications for a Holter monitor. Return to the emergency department for new or worsening symptoms. Prescriptions: No Action metoprolol tartrate 25 mg tablet 25 mg PO BID Qty: 180 3RF escitalopram oxalate 20 mg tablet 20 mg PO DAILY Qty: 30 1RF doxepin 10 mg capsule 10 mg PO BEDTIME Qty: 45 1RF Rx Instructions: Take 1-2 capsules at bedtime for sleep doxycycline monohydrate 100 mg capsule 100 mg PO BID Qty: 20 0RF budesonide-formoterol [Symbicort] inhalation chlorthalidone 25 mg tablet 25 mg PO QDAY Qty: 90 3RF pravastatin 10 mg tablet 10 mg PO HS Qty: 90 3RF clobetasol-emollient 0.05 % cream 1 applic Topical QDAY PRN (Reason: eczema) Qty: 30 1RF Rx Instructions: apply sparingly to affected areas daily multivitamin tablet 1 tab PO DAILY loratadine [Allerclear] 10 mg Tablet 10 mg PO DAILY cholecalciferol (vitamin D3) [Vitamin D3] 400 unit Capsule 50 unit PO DAILY Referrals: Cielo Zuniga DO [Primary Care Provider] - Stand Alone Forms: Patient Portal/API
[2022-12-10 14:13] LABS: Add Manual Diff / Slide Review NO; Basophils Absolute Auto 0 /uL (0-100); Basophils Percent Auto 0.8 % (0-2); Eosinophils Absolute Auto 500 /uL (0-450); Eosinophils Percent Auto 7.7 % (2-4); Hemoglobin 12.1 g/dL (12.0-16.0); Lymphocytes Absolute Auto 2000 /uL (1100-4500); Lymphocytes Percent Auto 34.6 % (25-40); Mean Corpuscular HGB Conc 32.8 % (30-36); Mean Corpuscular Hemoglobin 26.2 PG (26-34); Mean Corpuscular Volume 79.9 fL (80-100); Monocytes Absolute Auto 400 /uL (0-900); Monocytes Percent Auto 7.3 % (3-14); Neutrophils Absolute Auto 2900 /uL (1500-7000); Neutrophils Percent Auto 49.6 % (50-75); Platelet Count 227 X10^3/uL (150-400); Red Blood Cell Count 4.63 X10^6/uL (4.0-5.2); Red Cell Distribution Width 14.1 % (11.6-14.8); White Blood Cell Count 5.9 X10^3/uL (4.5-11.0)
== END 2022-12-10 14:23 | disposition home or self-care (01) ==
PROVIDERS: Emergency Provider Emergency Medicine; PCP Family Medicine
DX: S50.02XA Contusion of left elbow, initial encounter (principal); R55 Syncope and collapse
CPT/HCPCS: 73080; 85025; 93005; 99281; 99284

== ENCOUNTER → 2023-01-07 07:47 | Outpatient (CLI) | payer BC, SELFPAY | PROVIDERS: PCP Physician Assistant; Referring Provider Physician Assistant; Visit Provider Physician Assistant | DX: R55 Syncope and collapse (principal) | CPT/HCPCS: 93246 ==

== ENCOUNTER → 2023-02-02 07:04 | Outpatient (CLI) | payer BC, SELFPAY ==
--- NOTE | 2023-02-02 07:05 | DI.ECHO.S_ITS ---
[place] [facility]---------+ [facility] +---------+ : : [address] : : : : [id number] : : : : Phone: [phone]+ Echocardiogram Report + + :Name: GUILHERME DUMONT Study Date: 02/02/2023 Height: 60 in : :[facility] ReadingLocation: Weight: 127 lb : : Gender: Female BSA: 1.5 m2 : :: 1960 Age: 62 yrs BP: 152/92 mmHg: :Reason For Study: Syncope and Collapse : :Ordering Physician: JAIMIE, : :FRANCESCA Ho Performed By: Jodie Barber : :Referring: FRANCESCA ETIENNE : + + Interpretation Summary Normal left ventricle size with ejection fraction 55%. Subtle anterior wall and septal hypokinesis. Mild mitral regurgitation. Procedure: A two-dimensional transthoracic echocardiogram with color flow and Doppler was performed. The study quality was technically adequate. There is no prior echocardiogram noted for this patient. The patient was in normal sinus rhythm during the exam. Left Ventricle: The left ventricle is normal in size. Left ventricular ejection fraction is estimated to be 55%. There is anterior wall mild hypokinesis. There is septal wall mild hypokinesis. There are no other obvious focal wall motion abnormalities. Right Ventricle: The right ventricle is normal in size and function. Atria: The left atrial size is normal. Right atrial size is normal. There is no Doppler evidence for an interatrial shunt. Mitral Valve: The mitral valve is normal. There is no mitral valve stenosis. There is mild mitral regurgitation. Aortic Valve: The aortic valve is trileaflet. The aortic valve opens well. There is no aortic valve stenosis. There is trace aortic regurgitation. Tricuspid Valve: The tricuspid valve is normal. There is no tricuspid stenosis. There is trace tricuspid regurgitation. The right ventricular systolic pressure is estimated to be at least 21 mmHg based on an estimated right atrial pressure of 3 mm Hg. Pulmonic Valve: The pulmonic valve leaflets are thin and pliable; valve motion is normal. There is no pulmonic valvular stenosis. There is trace pulmonic regurgitation. Great Vessels: The aortic root is normal size. The ascending aorta is normal in size. The pulmonary artery is normal size. The IVC is of normal diameter and collapses greater than 50% with a sniff. This suggests a low right atrial pressure of 3 mm Hg. Pericardium/ Pleura There is no pericardial effusion. There is no pleural effusion. MMode/2D Measurements & Calculations LVIDd: 4.6 cm LVOT diam: 1.7 cm LVIDs: 3.4 cm Ao root diam: 2.3 cm FS: 26.1 % asc Aorta Diam: 3.4 cm IVSd: 1.0 cm LVPWd: 1.1 cm LV hernandez. diameter/BSA (cm/m^2): 3.0 LV sys. diameter/BSA (cm/m^2): 2.2 LA A2 area: 16.4 cm2 RA long axis: 4.7 cm LA A4 area: 15.0 cm2 RA area: 11.7 cm2 LA length (vol): 5.1 cm RA vol: 24.7 ml LA vol: 40.9 ml RA : 16.1 ml/m2 LA vol index: 26.6 ml/m2 IVC diam: 1.4 cm RVD1 (basal): 3.6 cm LVLs ap4: 6.0 cm LVLd ap2: 6.6 cm TAPSE_phl: 2.2 cm LVLs ap2: 5.6 cm Doppler Measurements & Calculations Ao V2 max: 116.0 cm/sec LVOT Max Dick: 85.7 cm/sec Ao V2 mean: 85.6 cm/sec LV V1 max P.9 mmHg Ao max P.0 mmHg LV V1 VTI: 20.5 cm Ao mean P.0 mmHg FOX(I,D): 1.5 cm2 Ao V2 VTI: 30.9 cm FOX(V,D): 1.7 cm2 sev ratio: 0.66 FOX indexed to BSA (cm^2/m^2): 0.98 MV E max dick: 79.5 cm/sec TR max dick: 213.0 cm/sec MV A max idck: 42.5 cm/sec TR max P.2 mmHg MV E/A: 1.9 PA V2 max: 75.3 cm/sec Med Peak E' Dick: 7.7 cm/sec PA V2 mean: 54.6 cm/sec E/E' med: 10.4 PA mean P.0 mmHg Lat Peak E' Dick: 12.4 cm/sec PA pr(Accel): -8.8 mmHg E/E' lat: 6.4 E/e' average: 8.4 MV dec time: 0.17 sec SV(LVOT): 46.5 ml AV VR_phl: 0.74 FOX(VTI)/BSA_phl: 0.98 Electronically signed by: Glynn Ramon on Reading Physician:02/02/2023 08:34 AM
== END ==
PROVIDERS: PCP Physician Assistant; Referring Provider Physician Assistant; Visit Provider Physician Assistant
DX: I34.0 Nonrheumatic mitral (valve) insufficiency (principal); R55 Syncope and collapse
CPT/HCPCS: 93306

== ENCOUNTER 2023-02-06 16:01 | Emergency (ER) | payer BC, SELFPAY ==
[2023-02-06 16:14] VITALS: BP 192/88; PULSE 57; RESP 18; TEMP 36.5; O2SAT 97; BMI 23.2
--- NOTE | 2023-02-06 18:19 | ED_ITS ---
HPI - General Adult General Chief complaint: Hypertension Stated complaint: lt red eye/sent by christy/tanvi mild stroke Time Seen by Provider: 02/06/23 18:19 Source: patient Mode of arrival: Ambulatory History of Present Illness HPI narrative: Patient arrives to the ED after having been sent from urgent care for concern of possible stroke. Her chief complaint today was redness in her left eye that she noticed earlier today. She also subsequent to arriving in urgent care as noticed a little bit of left-sided headache. She also noticed an elevated blood pressure reading when she checked in. She is been under lot of stress recently. Her of some years left her unexpectedly just a couple of months ago. She does take lisinopril for her blood pressure. She is had no head injury. She is had no significant symptoms of infection. She specifically denies head injury, fever, congestion, cough, shortness of breath, chest pain, nausea, vomiting, diarrhea, abdominal pain. She denies history of stroke. She does not smoke cigarettes. She otherwise feels reasonably well and just came in to the urgent care in the 1st place because her boss was concerned that the redness in her eye was getting worse. She has no eye disease to her knowledge. Related Data Home Medications Medication Instructions Recorded Confirmed multivitamin 1 tab PO DAILY 08/30/18 02/06/23 cholecalciferol (vitamin D3) 10 50 unit PO DAILY 12/29/18 02/06/23 mcg (400 unit) capsule (Vitamin D3) loratadine 10 mg tablet 10 mg PO DAILY 12/29/18 02/06/23 (Allerclear) budesonide-formoterol [Symbicort] inhalation 10/22/22 02/06/23 Previous Rx's Medication Instructions Recorded clobetasol-emollient 0.05 % 1 applic topical QDAY PRN eczema 04/08/22 topical cream #30 grams metoprolol tartrate 25 mg tablet 25 mg PO BID #180 tabs 07/14/22 doxepin 10 mg capsule 10 mg PO BEDTIME #45 caps 11/19/22 escitalopram oxalate 20 mg tablet 20 mg PO DAILY #30 tabs 01/12/23 chlorthalidone 25 mg tablet 25 mg PO QDAY #90 tabs 01/14/23 pravastatin 10 mg tablet 10 mg PO HS #90 tabs 01/14/23 Allergies Allergy/AdvReac Type Severity Reaction Status Date / Time apple [APPLE] Allergy Severe tachy, Verified 02/06/23 16:17 throat swelling kiwi [KIWI] Allergy Mild itchy ears Verified 02/06/23 16:17 SERNA Allergy Severe swollen Uncoded 12/23/22 15:54 throat Patient History Medical History Mucoid cyst of joint Eczema Achilles rupture, left (08/29/18) Hemorrhoids Dyshidrotic eczema Fibroids Hematuria Alpha thalassemia minor Hypertension Seasonal allergies Surgical History Anesthesia Bladder polyp (~2006) Status post hysterectomy (~02/2011) Family History Brother Age: 62 Hypertension Father Age: 89 Diabetes mellitus Cataract Prostate cancer Colon cancer Mother Age: 88 Carcinoma, renal cell Menieres disease Fibroid polyp of colon Brain tumor (benign) Hypertension Sister Age: 57 Fibroids Hypertension Social History marital status: number of children: 2 household members: spouse 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 HEAD: Atraumatic. Normocephalic. EYES: Sclera are clear without icterus. Extraocular movements are full. Subconjunctival hemorrhage on the left on the temporal aspect of the conjunctiva. Eyes are otherwise normal ENT: No rhinorrhea. Oropharynx is moist. Mouth exam is benign. NECK: Supple. Full range of motion. CARDIOVASCULAR: Normal rate and rhythm without murmur gallop or rub. RESPIRATORY: Clear to auscultation. Breath sounds equal bilaterally. No wheezes, rales, or rhonchi. GASTROINTESTINAL: Abdomen soft, non-tender, nondistended. EXTREMITIES: No edema, full range of motion. No obvious trauma. BACK: Normal inspection, no CVA tenderness. NEURO: Nonfocal examination, normal speech, Normal coordination of upper and lower extremities. Normal strength of upper and lower extremities. Cranial nerves 2-12 are intact to detailed examination. Gait not tested. SKIN: No rash or erythema of visible areas PSYCH: Normally oriented. Normal range of affect. Appropriate behavior Initial Vital Signs Initial Vital Signs: Vital Signs Temperature 97.7 F 02/06/23 16:14 Pulse Rate 57 L 02/06/23 16:14 Respiratory Rate 18 02/06/23 16:14 Blood Pressure 192/88 H 02/06/23 16:14 Pulse Oximetry 97 02/06/23 16:14 Oxygen Delivery Method Room Air 02/06/23 16:14 Course Orders Ordered: ED Orders 02/06/23 16:24 EKG-12 Lead Stat Vital Signs Vital signs: Vital Signs - 8 hr 02/06/23 16:14 02/06/23 18:21 Temperature 97.7 F Pulse Rate 57 L 54 L Respiratory Rate 18 16 Blood Pressure 192/88 H 151/74 H Pulse Oximetry 97 99 Oxygen Delivery Method Room Air Room Air Medical Decision Making ECG Data Interpretation: ECG obtained at 4:24 p.m. is notable for sinus bradycardia at 54. QTC is 441. This ECG is otherwise normal with no acute findings. [facility] Narrative Medical decision making narrative: 62-year-old woman with baseline hypertension presents with subconjunctival hemorrhage on the left with no history of trauma or severe headache. She did develop a mild headache after she was already here today. She has no hard neurologic findings. She has normal vital signs other than a mildly elevated blood pressure at this time with a systolic of about 150. I think reassurance is all that is required here ECG obtained shows no acute findings. I do not think neuroimaging is indicated in this case. I recommend careful outpatient follow-up and see discharge instructions for more details. Discharge Plan Departure Patient Disposition: Home Clinical Impression: Subconjunctival hemorrhage, Headache, Elevated blood pressure reading Activity Restrictions/Additional Instructions: Thank you for trusting us with your care today. The redness in your eye is what is known as a subconjunctival hemorrhage and this is a completely benign condition. It will resolve on its own over the next few weeks. Unless you have eye pain or difficulty with vision you do not need to worry about it at all. Regarding her headache, I do not think you have any evidence of a stroke or dangerous process right now. If you were to develop loss of function like difficulty with speech or vision or walking or weakness or clumsiness in your arms or legs or difficulty with speech of course you should return to the ED right away. For now I simply recommend Tylenol or ibuprofen to see if that he lps her headache. Follow-up with your doctor next week if symptoms are not improving. Regarding her blood pressure, I recommend that you check your blood pressure daily and keep it in a log and report your findings to your primary care doctor for blood pressure medication management as indicated. Prescriptions: No Action metoprolol tartrate 25 mg tablet 25 mg PO BID Qty: 180 3RF doxepin 10 mg capsule 10 mg PO BEDTIME Qty: 45 1RF Rx Instructions: Take 1-2 capsules at bedtime for sleep budesonide-formoterol [Symbicort] inhalation clobetasol-emollient 0.05 % cream 1 applic Topical QDAY PRN (Reason: eczema) Qty: 30 1RF Rx Instructions: apply sparingly to affected areas daily escitalopram oxalate 20 mg tablet 20 mg PO DAILY Qty: 30 3RF pravastatin 10 mg tablet 10 mg PO HS Qty: 90 0RF chlorthalidone 25 mg tablet 25 mg PO QDAY Qty: 90 0RF multivitamin tablet 1 tab PO DAILY loratadine [Allerclear] 10 mg Tablet 10 mg PO DAILY cholecalciferol (vitamin D3) [Vitamin D3] 400 unit Capsule 50 unit PO DAILY Referrals: Miscellaneous,Doctor, MD [Primary Care Provider] - Stand Alone Forms: Patient Portal/API
[2023-02-06 18:21] VITALS: BP 151/74; PULSE 54; RESP 16; O2SAT 99
== END 2023-02-06 18:34 | disposition home or self-care (01) ==
PROVIDERS: Emergency Provider Family Medicine Addiction Medicine
DX: H11.32 Conjunctival hemorrhage, left eye (principal); R51.9 Headache, unspecified; I10 Essential (primary) hypertension
CPT/HCPCS: 93005; 93010; 99281; 99282

== ENCOUNTER → 2023-02-27 07:45 | Outpatient (CLI) | payer BC, SELFPAY ==
--- NOTE | 2023-02-27 07:45 | DI.MG.S_ITS ---
BILATERAL DIGITAL SCREENING MAMMOGRAM 3D/2D WITH CAD: 02/27/2023 CLINICAL: Routine screening. Comparison is made to exams dated: 04/28/2020 mammogram, 03/12/2019 mammogram, and 11/06/2016 mammogram - [facility]. Both breasts are heterogeneously dense, which may obscure small masses (category c / 51-75% glandular tissue). Current study was also evaluated with a Computer Aided Detection (CAD) system. There is an asymmetry in the left breast posterior depth outer region seen on the craniocaudal view only. No other significant masses, calcifications, or other findings are seen in either breast. IMPRESSION: INCOMPLETE: NEEDS ADDITIONAL IMAGING EVALUATION The asymmetry in the left breast is indeterminate. A diagnostic mammogram and ultrasound is recommended. Based on the Tyrer Cuzick model (a risk assessment model) the patient's lifetime risk is 13.2% and her 10 year risk is 5.4%. According to the ACR, ACS, and NCCN guidelines, an annual breast MRI exam along with mammogram is recommended if the patient's lifetime risk is 20% or greater. This exam was interpreted at Station ID: [id number]. NOTE: For mammograms, a report in lay terms will be sent to the patient. Approximately 15% of breast malignancies will not be visualized mammographically. In the management of a palpable breast mass, a negative mammogram must not discourage biopsy of a clinically suspicious lesion. Electronically Signed By: Jessica Hartley M.D., PH.D eb/:02/27/2023 23:33:19 letter sent: Additional Imaging Needed ACR BI-RADS Category 0: Incomplete 3340F
== END ==
PROVIDERS: PCP Student in an Organized Health Care Education/Training Program; Referring Provider Student in an Organized Health Care Education/Training Program; Visit Provider Student in an Organized Health Care Education/Training Program
DX: Z12.31 Encounter for screening mammogram for malignant neoplasm of breast (principal)
CPT/HCPCS: 77063; 77067

== ENCOUNTER → 2023-03-17 08:41 | Outpatient (CLI) | payer BC, SELFPAY ==
--- NOTE | 2023-03-17 | DI.MG.S_ITS ---
UNILATERAL LEFT DIGITAL DIAGNOSTIC MAMMOGRAM 3D/2D WITH ADDITIONAL VIEWS: 03/17/2023 CLINICAL: Additional evaluation requested from prior study. Comparison is made to exams dated: 02/27/2023 mammogram, 04/28/2020 mammogram, and 03/12/2019 mammogram - [facility]. The left breast is heterogeneously dense, which may obscure small masses (category c / 51-75% glandular tissue). The possible 1.2 cm oval equal density asymmetry has an obscured and indistinct margin in the left breast middle depth lateral region and is seen on the craniocaudal view only. It is not seen in additional views and is less prominent. No other significant masses or calcifications are seen in the breast. IMPRESSION: INCOMPLETE: NEEDS ADDITIONAL IMAGING EVALUATION The possible 1.2 cm oval equal density asymmetry in the left breast most likely is fibroglandular tissue or a lymph node but remains indeterminate. An ultrasound is recommended. This was performed immediately following this exam. Based on the Tyrer Cuzick model (a risk assessment model) the patient's lifetime risk is 13.2% and her 10 year risk is 5.4%. According to the ACR, ACS, and NCCN guidelines, an annual breast MRI exam along with mammogram is recommended if the patient's lifetime risk is 20% or greater. This exam was interpreted at Station ID: [id number]. NOTE: For mammograms, a report in lay terms will be sent to the patient. Approximately 15% of breast malignancies will not be visualized mammographically. In the management of a palpable breast mass, a negative mammogram must not discourage biopsy of a clinically suspicious lesion. Electronically Signed By: Iris mata/:03/17/2023 09:07:19 ACR BI-RADS Category 0: Incomplete 3340F
--- NOTE | 2023-03-17 08:42 | DI.US.S_ITS ---
LIMITED ULTRASOUND OF LEFT BREAST: 03/17/2023 CLINICAL: Patient returns today to evaluate a focal asymmetry in the left breast. Comparison is made to exams dated: 03/17/2023 mammogram, 02/27/2023 mammogram, 04/28/2020 mammogram, 03/12/2019 mammogram, 11/06/2016 mammogram, and 10/26/2015 mammogram - [facility]. Color flow ultrasound of the left breast 4 o'clock region was performed. Mart scale images of the real-time examination were reviewed. No significant abnormalities were seen sonographically in the left breast. Specifically, no finding to correspond to the patient's less prominent screening mammographic asymmetry. IMPRESSION: PROBABLY BENIGN There is no sonographic correlate to the patient's mammographic asymmetry. This is probably fibroglandular tissue. A follow-up left mammogram in 6 months is recommended to demonstrate stability. Findings and recommendations were conveyed to the patient at time of exam. This exam was interpreted at Station ID: [id number]. Electronically Signed By: Iris mata/:03/17/2023 09:51:59 letter sent: Followup Recommended Ultrasound BI-RADS: 3 Probably benign
== END ==
PROVIDERS: PCP Student in an Organized Health Care Education/Training Program; Referring Provider Student in an Organized Health Care Education/Training Program; Visit Provider Student in an Organized Health Care Education/Training Program
DX: R92.8 Other abnormal and inconclusive findings on diagnostic imaging of breast (principal)
CPT/HCPCS: 76642; 77065; G0279

== ENCOUNTER → 2023-09-17 08:44 | Outpatient (CLI) | payer BC, SELFPAY ==
--- NOTE | 2023-09-17 08:45 | DI.MG.S_ITS ---
UNILATERAL LEFT DIGITAL DIAGNOSTIC MAMMOGRAM 3D/2D: 09/17/2023 CLINICAL: Patient returns for a 6 month follow up of the left breast. Comparison is made to exams dated: 03/17/2023 mammogram, 02/27/2023 mammogram, 04/28/2020 mammogram, 03/12/2019 mammogram, and 03/17/2023 ultrasound [facility]. The left breast is heterogeneously dense, which may obscure small masses (category c / 51-75% glandular tissue). There is a stable asymmetry in the left breast middle depth lateral region seen on the craniocaudal view only. This was not seen on the prior ultrasound. No other significant masses or calcifications are seen in the breast. IMPRESSION: PROBABLY BENIGN The stable asymmetry in the left breast is probably benign. A follow-up mammogram in 6 months is recommended to demonstrate stability. Patient will be due for right mammogram at that time. Exam findings were conveyed to the patient. Based on the Tyrer Cuzick model (a risk assessment model) the patient's lifetime risk is 13.2% and her 10 year risk is 5.6%. According to the ACR, ACS, and NCCN guidelines, an annual breast MRI exam along with mammogram is recommended if the patient's lifetime risk is 20% or greater. This exam was interpreted at Station ID: [id number]. NOTE: For mammograms, a report in lay terms will be sent to the patient. Approximately 15% of breast malignancies will not be visualized mammographically. In the management of a palpable breast mass, a negative mammogram must not discourage biopsy of a clinically suspicious lesion. Electronically Signed By: Morgan Soto M.D. [facility] [place]/:09/17/2023 09:23:22 letter sent: Followup Recommended ACR BI-RADS Category 3: Probably benign [id number]
== END ==
PROVIDERS: PCP Student in an Organized Health Care Education/Training Program; Referring Provider Student in an Organized Health Care Education/Training Program; Visit Provider Student in an Organized Health Care Education/Training Program
DX: R92.2 Inconclusive mammogram (principal); N63.20 Unspecified lump in the left breast, unspecified quadrant; R92.332 Mammographic heterogeneous density, left breast
CPT/HCPCS: 77065; G0279

== ENCOUNTER → 2024-01-01 14:30 | Outpatient (CLI) | payer OTHER, SELFPAY ==
--- NOTE | 2024-01-01 14:32 | DI.RAD.S_ITS ---
PROCEDURE: XR HIP W PEL IF DONE RT 2V INDICATIONS: Right hip pain TECHNIQUE: AP pelvis with lateral view(s) of the right hip(s). COMPARISON: None. FINDINGS: Bones: There are no osseous abnormalities. SI and hip joints: Normal in width and alignment without arthritic change. Mild L3-4 through L5-S1 degenerative disc disease noted . Soft tissues: No soft tissue swelling, calcification or mass. IMPRESSION: Normal pelvis. Mild L3-4 through L5-S1 degenerative disc disease Dictated by: Lisandro Alvarado M.D. on 01/04/2024 at 8:57 Approved by: Lisandro Alvarado M.D. on 01/04/2024 at 8:58
== END ==
PROVIDERS: PCP Student in an Organized Health Care Education/Training Program; Referring Provider Family Medicine; Visit Provider Family Medicine
DX: M51.369 Other intervertebral disc degeneration, lumbar region without mention of lumbar back pain or lower extremity pain (principal); M51.379 Other intervertebral disc degeneration, lumbosacral region without mention of lumbar back pain or lower extremity pain; M25.551 Pain in right hip
CPT/HCPCS: 73502

== ENCOUNTER → 2024-02-20 08:25 | Outpatient (CLI) | payer OTHER, SELFPAY | PROVIDERS: PCP Student in an Organized Health Care Education/Training Program; Visit Provider Nurse Practitioner Family | DX: T24.039 Burn of unspecified degree of unspecified lower leg (principal) | CPT/HCPCS: 87070; 87075; 87205 ==

== ENCOUNTER → 2024-03-02 12:57 | Outpatient (CLI) | payer OTHER, SELFPAY | PROVIDERS: PCP Student in an Organized Health Care Education/Training Program; Referring Provider Nurse Practitioner Family; Visit Provider Surgery | DX: B35.9 Dermatophytosis, unspecified (principal); T24.132D Burn of first degree of left lower leg, subsequent encounter; I10 Essential (primary) hypertension | CPT/HCPCS: 99203; 99213 ==

== ENCOUNTER → 2024-03-24 08:47 | Outpatient (CLI) | payer OTHER, SELFPAY | PROVIDERS: PCP Student in an Organized Health Care Education/Training Program; Referring Provider Student in an Organized Health Care Education/Training Program; Visit Provider Surgery | DX: B35.9 Dermatophytosis, unspecified (principal) | CPT/HCPCS: 99212; 99213 ==

== ENCOUNTER → 2024-06-03 11:53 | Outpatient (CLI) | payer OTHER, SELFPAY ==
--- NOTE | 2024-06-03 11:54 | DI.MG.S_ITS ---
MM diagnostic mammo BI: 06/03/2024. BI-RADS: 3 CLINICAL: 63-year old female for bilateral diagnostic mammogram. Tyrer-Cuzick lifetime risk of 7.7%. No personal or first-degree family history of breast cancer. PRIOR EXAMS 09/17/2023, 03/17/2023, 02/27/2023, 04/28/2020, 03/12/2019. MAMMOGRAPHY TECHNIQUE: 2D and 3D (tomosynthesis) digital mammographic views obtained, with additional images as needed for full coverage. Current study was also evaluated with a Computer Aided Detection (CAD) system. DENSITY C. The breasts are heterogeneously dense, which may obscure small masses. MAMMOGRAPHY FINDINGS Right: No suspicious mass, asymmetry, microcalcification, or other abnormality seen. Left: CC only, Outer, Posterior depth: There is a stable asymmetry present. This asymmetry does not correlate with ultrasound findings. IMPRESSION: Right * No evidence of malignancy. Left (Asymmetry): CC only, Outer, Posterior depth * Probably Benign. RECOMMENDATIONS: To demonstrate long-term stability. Right * The patient will also be due for mammogram of the contralateral breast at that time. Left: CC only, Outer, Posterior depth * Followup with diagnostic mammography in one year. COMMENTS: Findings and recommendations were conveyed to the patient during today's evaluation. OVERALL ASSESSMENT CATEGORY BI-RADS-3: Probably Benign. ELECTRONICALLY SIGNED: Morgan Soto M.D. on 06/03/2024 at 01:06:36 PM PT Interpreting Station ID: [id number]
== END ==
LOC: MAMMO 11:54
PROVIDERS: PCP Student in an Organized Health Care Education/Training Program; Referring Provider Student in an Organized Health Care Education/Training Program; Visit Provider Student in an Organized Health Care Education/Training Program
DX: R92.8 Other abnormal and inconclusive findings on diagnostic imaging of breast (principal); R92.333 Mammographic heterogeneous density, bilateral breasts
CPT/HCPCS: 77066; G0279

== ENCOUNTER 2024-06-22 18:19 | Emergency (ER) | payer OTHER, SELFPAY ==
[2024-06-22 18:31] VITALS: BP 137/75; PULSE 82; RESP 16; TEMP 37.1; O2SAT 95; BMI 27.1
[2024-06-22 23:16] VITALS: PULSE 94; O2SAT 95
[2024-06-22 23:17] VITALS: BP 154/74; PULSE 77; O2SAT 95
[2024-06-22 23:30] VITALS: BP 138/70; PULSE 74; O2SAT 94
--- NOTE | 2024-06-22 23:47 | ED_ITS ---
HPI - Extremity Injury (Lower) General Chief Complaint: Extremity Injury, Lower Stated Complaint: rt achilles popped Time Seen by Provider: 06/22/24 23:47 Source: patient Mode of arrival: Wheelchair History of Present Illness HPI Narrative: 64-year-old female past medical history of hyperlipidemia, hypertension, comes into the ED from home for evaluation of right ankle pain. She states that she was playing [employer] felt a pop to her right Achilles, states that she has been unable to hold her weight/stand on it since. States that she does have a history of Achilles tendon surgery to the left and states it feels similar. She denies head strike not on any blood thinners, denies any other injuries at this time. Related Data Home Medications Medication Instructions Recorded Confirmed multivitamin 1 tab PO DAILY 08/30/18 01/01/24 cholecalciferol (vitamin D3) 10 50 unit PO DAILY 12/29/18 01/01/24 mcg (400 unit) capsule (Vitamin D3) loratadine 10 mg tablet 10 mg PO DAILY 12/29/18 01/01/24 (Allerclear) budesonide-formoterol [Symbicort] inhalation 10/22/22 01/01/24 coenzyme Q10 300 mg capsule (Co 300 mg PO DAILY 01/01/24 01/01/24 Q-10) Previous Rx's Medication Instructions Recorded clobetasol-emollient 0.05 % 1 applic topical QDAY PRN eczema 04/08/22 topical cream #30 grams hydroxyzine HCl 10 mg tablet 10 mg PO TID PRN anxiety #90 tabs 04/07/23 chlorthalidone 50 mg tablet 50 mg PO DAILY #30 tabs 09/07/23 pravastatin 10 mg tablet 10 mg PO ONCE PM #90 tabs 09/07/23 metoprolol tartrate 25 mg tablet 25 mg PO BID #180 tabs 09/14/23 escitalopram oxalate 20 mg tablet 20 mg PO DAILY #90 tabs 09/21/23 mupirocin 2 % topical ointment 1 applic topical TID #15 grams 02/20/24 Allergies Allergy/AdvReac Type Severity Reaction Status Date / Time apple [APPLE] Allergy Severe tachy, Verified 02/20/24 08:23 throat swelling kiwi [KIWI] Allergy Mild itchy ears Verified 02/20/24 08:23 SERNA Allergy Severe swollen Uncoded 02/20/24 08:23 throat Review of Systems Review of Systems Narrative: General: Denies fever, chills, weight loss HEENT: Denies headache, eye drainage, eye irritation, head trauma, sore throat, voice change Cardiovascular: Denies any chest pain, palpitations, tachycardia Respiratory: Denies any shortness of breath, cough, wheeze, stridor GI/: Denies any abdominal pain, nausea, vomiting, diarrhea, bright red blood per rectum, melanotic stools, urinary frequency, urinary retention, dysuria, hematuria MSK: Positive right Achilles tendon pain Skin: Denies any rashes, lesions, discoloration Neuro: Denies any headache, lightheadedness, dizziness, fainting, weakness Psych: Denies SI/HI Patient History Medical History Mucoid cyst of joint Eczema Achilles rupture, left (08/29/18) Hemorrhoids Dyshidrotic eczema Fibroids Hematuria Alpha thalassemia minor Hypertension Seasonal allergies Surgical History Anesthesia Bladder polyp (~2006) Status post hysterectomy (~02/2011) Family History Brother Age: 63 Hypertension Father Age: 90 Diabetes mellitus Cataract Prostate cancer Colon cancer Mother Age: 89 Carcinoma, renal cell Menieres disease Fibroid polyp of colon Brain tumor (benign) Hypertension Sister Age: 58 Fibroids Hypertension Social History marital status: number of children: 2 household members: spouse 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) Smoking Status: Never smoker second hand exposure: Yes (when I was little.) alcohol intake: current substance use type: does not use Smoking Status: Never smoker alcohol intake frequency: 3 or more drinks per day Alcohol type: wine Exam Narrative Exam Narrative: General: Cooperative, well-developed, not in acute distress HEENT: Normocephalic, atraumatic, PERRLA, normal sclera, eyelids normal Neck: Active full range of motion, atraumatic Chest: Normal to inspection, negative crepitus, no overlying erythema ecchymosis Respiratory: Normal respiratory effort, not in acute respiratory distress, clear to auscultation bilaterally negative cough, wheeze, tachypnea, rhonchi, rales Cardiology: Regular rate rhythm negative gallop, murmur, rubs GI/: No tenderness to palpation, soft, non rigid, normal to inspection, exam deferred MSK: Bilateral lower extremities neurovascularly intact, positive Villalobos test of the right, otherwise grossly normal Skin: No rashes or lesions noted Neuro: Alert awake oriented x3, moves all 4 extremities spontaneously, cranial nerves intact, able to answer all questions appropriately follows commands appropriately Psych: Cooperative, negative suicidal or homicidal ideations Initial Vital Signs Initial Vital Signs: Vital Signs Temperature 98.7 F 06/22/24 18:31 Pulse Rate 82 06/22/24 18:31 Respiratory Rate 16 06/22/24 18:31 Blood Pressure 137/75 06/22/24 18:31 Pulse Oximetry 95 06/22/24 18:31 Oxygen Delivery Method Room Air 06/22/24 18:31 Course Orders Ordered: ED Orders 06/22/24 23:48 XR ankle RT min 3V Stat Vital Signs Vital signs: Vital Signs - 8 hr 06/22/24 18:31 06/22/24 23:16 06/22/24 23:17 Temperature 98.7 F Pulse Rate 82 94 H 77 Respiratory Rate 16 Blood Pressure 137/75 Pulse Oximetry 95 95 95 Oxygen Delivery Method Room Air 06/22/24 23:17 06/22/24 23:30 06/22/24 23:30 Temperature Pulse Rate 74 Respiratory Rate Blood Pressure 154/74 H 138/70 Pulse Oximetry 94 Oxygen Delivery Method 06/23/24 00:00 06/23/24 00:00 06/23/24 00:30 Temperature Pulse Rate 67 71 Respiratory Rate Blood Pressure 133/78 Pulse Oximetry 93 93 Oxygen Delivery Method 06/23/24 00:30 06/23/24 01:00 06/23/24 01:30 Temperature Pulse Rate 72 68 Respiratory Rate Blood Pressure 138/75 Pulse Oximetry 93 94 Oxygen Delivery Method 06/23/24 01:30 06/23/24 02:00 06/23/24 02:00 Temperature Pulse Rate 69 Respiratory Rate Blood Pressure 142/78 H 143/81 H Pulse Oximetry 95 Oxygen Delivery Method MDM - Extremity Injury (Lower) Differential Diagnosis Differential diagnosis: Likely other (Achilles tendon rupture, avulsion fracture) Imaging Data Extremity x-ray #1: Radiologist's Impression: [address] [address] XRay Report Signed Patient: Felicita Stover MR#: [id number] : 1960 Acct:[id number] Age/Sex: 64 / F Date of Service: 06/22/24 Loc: ED Accession Number: [id number] Procedure: XR ankle RT min 3V Ordering Provider: Godfrey Olmstead D.O. PROCEDURE: XR ANKLE RT MIN 3V INDICATIONS: Possible Achilles tendon rupture TECHNIQUE: Three views of the ankle were acquired. COMPARISON: None. FINDINGS: Bones: No acute fractures or dislocations. Corticated fragment distal to the fibula. Ankle mortise is normally aligned. No suspicious bony lesions. Soft tissues: No tibiotalar joint effusion. Achilles tendon may be slightly thickened, however the pre Achilles fat pad remains clear. IMPRESSION: No acute fracture. Achilles tendon is possibly thickened but grossly intact. Recommend Achilles tendon protocol MRI or ultrasound for further detail. MDM Narrative Medical decision making narrative: 64-year-old female past medical history of hypertension hyperlipidemia presents for right Achilles tendon pain, she states she was playing [employer] was backing up felt a pop was unable to bear weight immediately after. Has a history of Achilles tendon rupture status post repair to the left states it feels exactly the same. On exam patient with positive Villalobos test of the right, otherwise neurovascularly intact, patient had x-ray performed here , patient was placed in an equinus splint, was instructed to follow up with Orthopedic surgery in outpatient setting she verbalized understanding of this was given strict return precautions agrees and will be discharged home with outpatient follow up. Discharge Plan Departure Patient Disposition: Home Clinical Impression: Achilles tendon rupture Instructions: DI for Achilles Tendon Rupture Activity Restrictions/Additional Instructions: Please follow up with Orthopedic surgery in outpatient setting Please read the discharge instructions sheet carefully and bring all papers to all doctor follow-up visits, as it may contain information that your doctor may want to see. Disease processes change and evolve, if your symptoms worsen or if you develop any new symptoms that are concerning to you please return for evaluation. Your evaluation today does not show any evidence of any life-threatening/serious illnesses requiring admission to the hospital or surgery. Please follow-up with your doctor for re-evaluation in approximately 1 day. Seek immediate medical attention for any worrisome symptoms. *If you do not have a primary care provider please contact the [facility] Resource line at [phone]. They will ask some questions about your medical history and help get you set up with a doctor in the community. Prescriptions: No Action budesonide-formoterol [Symbicort] inhalation hydroxyzine HCl 10 mg tablet 10 mg PO TID PRN (Reason: anxiety) Qty: 90 3RF Co Q-10 300 mg capsule 300 mg PO DAILY mupirocin 2 % ointment 1 applic topical TID Qty: 15 0RF clobetasol-emollient 0.05 % cream 1 applic Topical QDAY PRN (Reason: eczema) Qty: 30 1RF Rx Instructions: apply sparingly to affected areas daily pravastatin 10 mg tablet 10 mg PO ONCE PM Qty: 90 3RF chlorthalidone 50 mg tablet 50 mg PO DAILY Qty: 30 11RF metoprolol tartrate 25 mg tablet 25 mg PO BID Qty: 180 3RF escitalopram oxalate 20 mg tablet 20 mg PO DAILY Qty: 90 3RF multivitamin tablet 1 tab PO DAILY loratadine [Allerclear] 10 mg Tablet 10 mg PO DAILY cholecalciferol (vitamin D3) [Vitamin D3] 400 unit Capsule 50 unit PO DAILY Referrals: Angy Wright MD [Physician] - Jodie Tidwell MD [Primary Care Provider] - Stand Alone Forms: Patient Portal/API/Survey
[2024-06-23] VITALS: BP 133/78; PULSE 67; O2SAT 93
[2024-06-23 00:30] VITALS: BP 138/75; PULSE 71; O2SAT 93
--- NOTE | 2024-06-23 00:53 | PC.NURSE ---
Equinus splint placed and checked by
--- NOTE | 2024-06-23 00:59 | PC.NURSE ---
Patient has her own crutches at home, declined crutches here
[2024-06-23 01:00] VITALS: PULSE 72; O2SAT 93
[2024-06-23 01:30] VITALS: BP 142/78; PULSE 68; O2SAT 94
[2024-06-23 02:00] VITALS: BP 143/81; PULSE 69; O2SAT 95
== END 2024-06-23 02:07 | disposition home or self-care (01) ==
PROVIDERS: Emergency Provider Student in an Organized Health Care Education/Training Program; PCP Student in an Organized Health Care Education/Training Program
DX: S86.011A Strain of right Achilles tendon, initial encounter (principal); X58.XXXA Exposure to other specified factors, initial encounter; Y93.69 Activity, other involving other sports and athletics played as a team or group
CPT/HCPCS: 73610; 99282; 99283

== ENCOUNTER → 2025-03-20 07:18 | Outpatient (CLI) | payer OTHER, SELFPAY ==
[2025-03-20 07:59] LABS: Add Manual Diff / Slide Review NO; Hematocrit 36.5 % (36-46); Hemoglobin 12.3 g/dL (12.0-16.0); Lymphocytes Absolute Auto 2200 /uL (1100-4500); Mean Corpuscular HGB Conc 33.8 % (30-36); Mean Corpuscular Hemoglobin 26.2 PG (26-34); Mean Corpuscular Volume 77.5 fL (80-100); Platelet Count 124 X10^3/uL (150-400)
[2025-03-20 08:08] LABS: Alanine Aminotransferase 67 IU/L (<35); Albumin 4.7 g/dL (3.5-5.0); Albumin Globulin Ratio 1.3 (1.0-2.8); Alkaline Phosphatase 75 U/L (38-126); Blood Urea Nitrogen 13 mg/dL (7-17); Calcium 9.9 mg/dL (8.4-10.2); Carbon Dioxide 29 mmol/L (22-32); Chloride 94 mmol/L (98-107); Cholesterol 228 mg/dL (140-199); Estimated Glomerular Filt Rate > 60 mL/min (>60); Globulin 3.5 g/dL (1.7-4.1); Glucose 96 mg/dL (70-99); HDL Cholesterol 101 mg/dL (40-60); HEMOLYSIS < 15 (0-50); Potassium 3.4 mmol/L (3.4-5.1); Sodium 132 mmol/L (137-145); Total Protein 8.2 g/dL (6.3-8.2); Triglycerides 134 mg/dL (35-150)
[2025-03-20 08:37] LABS: Thyroid Stimulating Hormone 3.46 uIU/mL (0.47-4.68)
== END ==
PROVIDERS: PCP Student in an Organized Health Care Education/Training Program; Referring Provider Student in an Organized Health Care Education/Training Program; Visit Provider Student in an Organized Health Care Education/Training Program
DX: E78.00 Pure hypercholesterolemia, unspecified (principal); I10 Essential (primary) hypertension
CPT/HCPCS: 36415; 80053; 80061; 84443; 85025